=== PATIENT | female | born 1985 | race Caucasian/White ===

== ENCOUNTER 2018-05-28 18:55 | Emergency (ER) | payer BC ==
[~2018-05-28] VITALS: Ht 175.3 cm; Wt 63.6 kg
[2018-05-28 19:10] VITALS: TEMP 99.3
[2018-05-28 23:01] VITALS: BP 112/69; PULSE 116
== END 2018-05-28 23:13 | disposition home or self-care (01) ==
LOC: COL.ER 18:55
DX: T18.128A Food in esophagus causing other injury, initial encounter (principal); K21.0 Gastro-esophageal reflux disease with esophagitis; R13.12 Dysphagia, oropharyngeal phase; K31.84 Gastroparesis
CPT/HCPCS: J1610; J2060; J2250; J3010; J7030

== ENCOUNTER → 2020-01-23 | Outpatient (CLI) | payer BC | LOC: ZCOL.LAB 10:06 | DX: Z20.828 Contact with and (suspected) exposure to other viral communicable diseases (principal) ==

== ENCOUNTER 2020-09-28 20:04 | Emergency (ER) | payer BC ==
[~2020-09-28] VITALS: Ht 175.3 cm; Wt 71.1 kg
[2020-09-28 20:09] VITALS: TEMP 99.9
[2020-09-28 20:59] LABS: BASO # 0.1 (0.0-0.2); BASO % 0.8 % (0.0-2.0); EOS # 0.8 (0.0-0.7); EOS % 5.8 % (0-4.0); GRAN # 8.5 (1.4-6.5); GRAN % 66.3 % (42.2-75.2); HEMATOCRIT 44.5 % (37.0-47.0); HEMOGLOBIN 14.8 g/dl (12.5-16.0); LYMPH # 2.6 (1.2-3.4); LYMPH % 20.2 % (20.0-51.0); MEAN CELL VOLUME 87 fl (80.0-100.0); MEAN CORPUSCULAR HEMOGLOBIN 29 pg (27.0-31.0); MEAN CORPUSCULAR HGB CONC 33 g/dl (33.0-37.0); MEAN PLATELET VOLUME 10.9 fl (7.4-10.4); MONO # 0.9 (0.1-0.6); MONO % 6.7 % (1.7-9.3); PLATELET COUNT 347 K/mm3 (130-400); RED BLOOD COUNT 5.12 M/mm3 (4.10-5.30); REDCELL DISTRIBUTION WIDTH-CV 12.3 % (11.5-14.5)
[2020-09-28 21:07] LABS: ALBUMIN 4.5 gm/dL (3.5-5.0); BILIRUBIN,TOTAL 0.3 mg/dL (0.0-1.0); CALCIUM 9.5 mg/dL (8.4-10.2); CREATININE, serum 0.79 (0.52-1.25); POTASSIUM 3.9 mmol/L (3.4-5.0)
[2020-09-29 01:13] VITALS: BP 132/62; PULSE 64
== END 2020-09-29 01:13 | disposition home or self-care (01) ==
LOC: COL.ER 20:04
PROVIDERS: Emergency Medicine
DX: T18.128A Food in esophagus causing other injury, initial encounter (principal); K22.2 Esophageal obstruction
CPT/HCPCS: C9113; J1610; J2250; J2405; J2704; J7120